=== PATIENT | male | born 1975 | race Caucasian/White ===

== ENCOUNTER 2017-06-05 18:21 | Inpatient (IN) ==
[2017-06-05] MEDS ORDERED: 0.9 % Sodium Chloride 1,000 ML IVC ONE (19:22)
[2017-06-05] MEDS ORDERED: cloNIDine HCl 0.1 MG TABLET PO ONE (19:25)
[2017-06-05] MEDS ORDERED: *HR* Promethazine 25 MG/ML VIAL IVP ONE (19:26)
--- NOTE | 2017-06-05 19:26 | Emergency Department Note ---
Disposition Clinical Impression: Dizziness Abdominal pain Qualifiers: Abdominal location: unspecified location Qualified Code(s): R10.9 - Unspecified abdominal pain Constipation Qualifiers: Constipation type: unspecified constipation type Qualified Code(s): K59.00 - Constipation, unspecified Hypertension Qualifiers: Hypertension type: unspecified Qualified Code(s): I10 - Essential (primary) hypertension Disposition: Admitted As Inpatient Condition: Fair Forms: ED Satisfaction Letter, Work/School Release Time of Disposition: 20:34 Abdominal Pain HPI - General Chief Complaint: ED Abdominal Pain Stated Complaint: "dizziness,constipation,abd pain" Time Seen by Provider: 06/05/17 19:08 Source: patient Mode of arrival: ambulatory Limitations: no limitations Nursing Notes Reviewed: Yes Vital Signs Reviewed: Yes - History of Present Illness HPI Narrative: 41-year-old male with a history of hypertension presents for evaluation of abdominal pain, dizziness, constipation. Patient states he has had abdominal pain over the past 3 days. Patient states he has not had a normal bowel movement over that time. Patient still passing gas. Patient denies any history of abdominal surgeries. No colonoscopies. Patient's been taking Colace [id number]. Patient also states he has been having dizziness for the past month. Patient states that the dizziness is worse with head movement and positioning. Patient denies any history of room spinning. Patient had one episode of emesis. Patient denies any chest penetrance of breath. Patient denies any focal neurologic deficits. States that his dizziness appears to resolve after he passes gas. Pain Scale: 5 - Related Data Allergies Allergy/AdvReac Type Severity Reaction Status Date / Time No Known Allergies Allergy Verified 06/05/17 19:49 All systems ED: reviewed and negative except as stated. Constitutional: Denies: fever Cardiovascular: Denies: chest pain Respiratory: Denies: cough Gastrointestinal: Reports: abdominal pain, vomiting, constipation. Denies: nausea Abdominal Pain PMH - Past Medical History Medical history: Reports: hypertension Male Surgical History: Reports: no surgical history Psychiatric history: Reports: no psych history - Social History Smoking status: Current every day smoker Alcohol use: Reports: none Drug use: Reports: none Physical Exam - General Limitations: no limitations General appearance: alert, in no apparent distress - Eye Eye exam: Present: normal appearance - ENT ENT exam: normal exam - Neck Neck exam: Present: normal inspection - Chest Chest inspection: Present: normal inspection - Respiratory Respiratory exam: Present: normal lung sounds bilaterally. Absent: respiratory distress - Cardiovascular Cardiovascular exam: Present: regular rate, normal rhythm. Absent: systolic murmur - Abdominal Exam Abdominal exam: Present: soft, Non-Tender, hyperactive bowel sounds. Absent: guarding, rebound - Extremities Exam Extremities exam: Present: normal inspection. Absent: pedal edema - Expanded Lower Extremity Exam Neurovascular/Tendon exam: Present: normal capillary refill - Neurological Exam Neurological exam: Present: alert, oriented X3, CN II-XII intact - Skin Skin exam: Present: warm, dry, intact, normal color Course Course Narrative: Patient in no acute distress. Patient will get CT scan the abdomen pelvis. Patient will get the screening cardiac evaluation given the history of hypertension. Disposition pending. - Reevaluation(s) Reevaluation #1: Patient is up-to-date on plan of care. Patient states that he feels sleepy. Patient still feels an element of dizziness. Plan for admission. Time: 20:40 Reevaluation #2: Spoke with bed management and made them aware that the patient will require nicardipine. Patient will require a step down. Time: 20:44 Vital Signs Temperature 98.5 F 06/05/17 18:32 Pulse Rate 71 06/05/17 18:32 Respiratory Rate 18 06/05/17 18:32 Blood Pressure 209/132 06/05/17 18:32 O2 Sat by Pulse Oximetry 98 06/05/17 18:32 Temperature 98.5 F 06/05/17 18:32 Pulse Rate 70 06/05/17 20:10 Respiratory Rate 16 06/05/17 20:10 Blood Pressure 232/126 06/05/17 20:10 O2 Sat by Pulse Oximetry 98 06/05/17 18:32 Oxygen Delivery Oxygen Delivery Room Air Abdominal Pain - MDM Narrative Medical decision making narrative: 41-year-old male presents for evaluation of dizziness, hypertension, as well as constipation. Patient abdominal exam is unremarkable. Patient has active bowel sounds. Patient had a CT scan abdomen pelvis. Patient also had a CT scan of the head. Patient was noted be hypertensive throughout his ED course. Patient was given clonidine. Concerns of possible hypertensive emergency with the patient's dizziness as a complaint. Not able to rule out central cause of the patient's dizziness. Patient has had dizziness intermittent over several weeks. Patient had a head CT obtained. Patient does not have close follow-up with his primary care doctor. Given the patient's abnormal vitals with hypertension the patient will be admitted to the hospital service for continued hemodynamic monitoring. Patient also likely benefit from further evaluation of his dizziness. Patient was updated on plan of care. - Lab Data Lab results reviewed: Yes I reviewed the patient's lab results. Result diagrams: 06/05/17 19:30 06/05/17 19:30 Lab Results 06/05/17 06/05/17 06/05/17 Range/Units 19:30 19:30 19:30 WBC 9.1 (4.3-11.1) K/mcL RBC 5.09 (4.19-5.50) M/mcL Hgb 15.6 (12.9-16.9) g/dL Hct 43.8 (37.5-50.1) % MCV 86.1 (83.0-100.0) fL MCH 30.6 (28.0-33.3) pg MCHC 35.6 H (31.6-35.5) g/dL RDW 12.0 (11.5-14.5) % Plt Count 199 (140-400) K/mcL MPV 10.5 (9.4-12.4) fL Immature Gran % 0.4 (0-4) % Seg Neutrophils % 66.8 % Lymphocytes % 22.1 % Monocytes % 6.5 % Eosinophils % 3.3 % Basophils % 0.9 % Neutrophils # 6.1 (1.6-8.9) K/mcL Lymphocytes # 2.0 (0.6-4.6) K/mcL Monocytes # 0.6 (0.0-1.3) K/mcL Eosinophils # 0.3 (0.0-0.6) K/mcL Basophils # 0.1 (0.0-0.2) K/mcL Sodium 138 (136-145) mEq/L Potassium 3.7 (3.5-5.1) mEq/L Chloride 103 (98-107) mEq/L Carbon Dioxide 29 (23-29) mEq/L BUN 9 (6-20) mg/dL Creatinine 0.67 L (0.70-1.30) mg/dL Est GFR ( Amer) > 60 (> 60) Est GFR (Non-Af Amer) > 60 (> 60) BUN/Creatinine Ratio 13 (6-26) Glucose 128 H (70-105) mg/dL Calculated Osmolality 286 (280-300) Lactic Acid (0.5-2.2) mmol/L Calcium 9.9 (8.6-10.3) mg/dL Total Bilirubin 0.7 (0.3-1.0) mg/dL AST 16 (13-39) Units/L ALT 31 (7-52) Units/L Alkaline Phosphatase 61 (34-104) Units/L Troponin I < 0.03 (< 0.04) ng/mL B-Natriuretic Peptide 27 (Less than 100) pg/mL Serum Total Protein 6.9 (6.4-8.9) g/dL Albumin 4.8 (3.5-5.7) g/dL Globulin 2.1 L (2.4-3.5) g/dL Albumin/Globulin Ratio 2.3 H (1.1-2.2) 06/05/17 Range/Units 19:30 WBC (4.3-11.1) K/mcL RBC (4.19-5.50) M/mcL Hgb (12.9-16.9) g/dL Hct (37.5-50.1) % MCV (83.0-100.0) fL MCH (28.0-33.3) pg MCHC (31.6-35.5) g/dL RDW (11.5-14.5) % Plt Count (140-400) K/mcL MPV (9.4-12.4) fL Immature Gran % (0-4) % Seg Neutrophils % % Lymphocytes % % Monocytes % % Eosinophils % % Basophils % % Neutrophils # (1.6-8.9) K/mcL Lymphocytes # (0.6-4.6) K/mcL Monocytes # (0.0-1.3) K/mcL Eosinophils # (0.0-0.6) K/mcL Basophils # (0.0-0.2) K/mcL Sodium (136-145) mEq/L Potassium (3.5-5.1) mEq/L Chloride (98-107) mEq/L Carbon Dioxide (23-29) mEq/L BUN (6-20) mg/dL Creatinine (0.70-1.30) mg/dL Est GFR ( Amer) (> 60) Est GFR (Non-Af Amer) (> 60) BUN/Creatinine Ratio (6-26) Glucose (70-105) mg/dL Calculated Osmolality (280-300) Lactic Acid 1.3 (0.5-2.2) mmol/L Calcium (8.6-10.3) mg/dL Total Bilirubin (0.3-1.0) mg/dL AST (13-39) Units/L ALT (7-52) Units/L Alkaline Phosphatase (34-104) Units/L Troponin I (< 0.04) ng/mL B-Natriuretic Peptide (Less than 100) pg/mL Serum Total Protein (6.4-8.9) g/dL Albumin (3.5-5.7) g/dL Globulin (2.4-3.5) g/dL Albumin/Globulin Ratio (1.1-2.2) - Radiology Data Radiology results reviewed: Yes I reviewed the patient's radiology results. Abdomen/Pelvis CT 06/05/17 19:20 IMPRESSION: Questionable narrowing of the colon at both the splenic and hepatic flexures, without significant wall thickening. There is a small- moderate colonic stool burden. Diffuse hepatic steatosis. Hyperdense material within the appendix suspicious for appendicoliths. There are no findings of acute appendicitis. Nonobstructing right renal calculus. D/ / Toribio Mclean MD / Toribio Mclean MD Interpreting Provider: Toribio Mclean MD Chest X-Ray 06/05/17 19:21 IMPRESSION: No significant findings in the chest. D/ / Tyrone Decker MD / Tyrone Decker MD Interpreting Provider: Tyrone Decker MD Head CT 06/05/17 20:17 IMPRESSION: No acute intracranial abnormality. D/ / Cole Santiago MD / Cole Santiago MD Interpreting Provider: Cole Santiago MD - EKG Data EKG attestation: Yes I reviewed and interpreted this EKG. EKG shows normal: sinus rhythm Rate: normal Rhythm: NSR [place]/QRS: normal Voltage: c/w LVH Heart block present: 1st Degree Interpretation: no acute changes, nonspecific ST-T wave changes S.B.ALilliRLilli - S.BreonnaAOtoniel Situation: Demographics Background: Presenting Complaint Assessment: Vital Signs, Patient/Family Expectation Recommendation: Barrier(s) to disposition, Recommendation based on pending studies, treatments, or consults S.B.A.Dnia Report Given to: Dr. Delgado Luna Repor Time: 20:36
[2017-06-05 19:43] LABS: Basophils # 0.1 K/mcL (0.0-0.2); Basophils % 0.9 %; Eosinophils # 0.3 K/mcL (0.0-0.6); Eosinophils % 3.3 %; Hematocrit 43.8 % (37.5-50.1); Hemoglobin 15.6 g/dL (12.9-16.9); Immature Granulocytes % 0.4 % (0-4); Lymphocytes % 22.1 %; Mean Corpuscular HGB Conc 35.6 g/dL (31.6-35.5); Mean Corpuscular Hemoglobin 30.6 pg (28.0-33.3); Mean Corpuscular Volume 86.1 fL (83.0-100.0); Mean Platelet Volume 10.5 fL (9.4-12.4); Monocytes # 0.6 K/mcL (0.0-1.3); Monocytes % 6.5 %; Neutrophils # 6.1 K/mcL (1.6-8.9); Platelet Count 199 K/mcL (140-400); Red Blood Count 5.09 M/mcL (4.19-5.50); Segmented Neutrophils % 66.8 %
--- NOTE | 2017-06-05 19:58 | Emergency Department Note ---
Disposition Clinical Impression: Abdominal pain Qualifiers: Abdominal location: unspecified location Qualified Code(s): R10.9 - Unspecified abdominal pain Disposition: Still a Patient Referrals: NONE,PCP [Primary Care Provider] - Yoselyn Lambert [Family Provider] - Forms: ED Satisfaction Letter, Work/School Release General Adult HPI - General Chief complaint: ED Abdominal Pain Stated complaint: "dizziness,constipation,abd pain" Time Seen by Provider: 06/05/17 19:08 Source: patient Mode of arrival: ambulatory Limitations: no limitations - History of Present Illness Pain Scale: 5 - Related Data Allergies Allergy/AdvReac Type Severity Reaction Status Date / Time No Known Allergies Allergy Verified 06/05/17 19:49 Constitutional: Denies: fever Cardiovascular: Denies: chest pain Respiratory: Denies: cough Gastrointestinal: Reports: abdominal pain, vomiting, constipation. Denies: nausea Past Medical History - Past Medical History Medical history: Reports: hypertension Psychiatric history: Reports: no psych history - Social History Smoking Status: Current every day smoker Smokeless Tobacco Status: Yes Alcohol use: Reports: none Drug use: Reports: none Physical Exam - General Limitations: no limitations General appearance: alert, in no apparent distress Course Vital Signs Temperature 98.5 F 06/05/17 18:32 Pulse Rate 71 06/05/17 18:32 Respiratory Rate 18 06/05/17 18:32 Blood Pressure 209/132 06/05/17 18:32 O2 Sat by Pulse Oximetry 98 06/05/17 18:32 Temperature 98.5 F 06/05/17 18:32 Pulse Rate 71 06/05/17 18:32 Respiratory Rate 18 06/05/17 18:32 Blood Pressure 209/132 06/05/17 18:32 O2 Sat by Pulse Oximetry 98 06/05/17 18:32 Oxygen Delivery Oxygen Delivery Room Air Medical Decision Making - Lab Data Result diagrams: 06/05/17 19:30 Lab Results 06/05/17 06/05/17 Range/Units 19:30 19:30 WBC 9.1 (4.3-11.1) K/mcL RBC 5.09 (4.19-5.50) M/mcL Hgb 15.6 (12.9-16.9) g/dL Hct 43.8 (37.5-50.1) % MCV 86.1 (83.0-100.0) fL MCH 30.6 (28.0-33.3) pg MCHC 35.6 H (31.6-35.5) g/dL RDW 12.0 (11.5-14.5) % Plt Count 199 (140-400) K/mcL MPV 10.5 (9.4-12.4) fL Immature Gran % 0.4 (0-4) % Seg Neutrophils % 66.8 % Lymphocytes % 22.1 % Monocytes % 6.5 % Eosinophils % 3.3 % Basophils % 0.9 % Neutrophils # 6.1 (1.6-8.9) K/mcL Lymphocytes # 2.0 (0.6-4.6) K/mcL Monocytes # 0.6 (0.0-1.3) K/mcL Eosinophils # 0.3 (0.0-0.6) K/mcL Basophils # 0.1 (0.0-0.2) K/mcL Lactic Acid 1.3 (0.5-2.2) mmol/L Attestation Statement - Attestation Attestation: I examined this patient and my medical decision-making was reviewed with the Resident Physician. I agree with the documented findings, disposition and treatment plan as described except to the extent set forth below. 41 year old male prsentse to the ED with complaints of abdomnial pain and constipation adn every time he tries to go to pass stool he strains so hard that he has had a syncopal episode due to it and sometimes gets near syncopal with it. NO history of colon cancer or fmaily history of colon cancer and no history of colonoscopy or abdominal surgeires. He is hypertensive but is chornically hypertensie and is not complaning of chest pain or headache at this time. We will do ABCT and abdominal labs to rule out abdominal pathology
[2017-06-05 20:03] LABS: Troponin I < 0.03 ng/mL (< 0.04)
[2017-06-05 20:04] LABS: Alanine Aminotransferase 31 Units/L (7-52); Albumin 4.8 g/dL (3.5-5.7); Albumin/Globulin Ratio 2.3 (1.1-2.2); Alkaline Phosphatase 61 Units/L (34-104); Aspartate Amino Transferase 16 Units/L (13-39); BUN/Creatinine Ratio 13 (6-26); Bilirubin,Total 0.7 mg/dL (0.3-1.0); Blood Urea Nitrogen 9 mg/dL (6-20); Calcium 9.9 mg/dL (8.6-10.3); Carbon Dioxide 29 mEq/L (23-29); Chloride 103 mEq/L (98-107); Globulin 2.1 g/dL (2.4-3.5); Glucose 128 mg/dL (70-105); Osmolality,Calculated 286 (280-300); Potassium 3.7 mEq/L (3.5-5.1); Sodium 138 mEq/L (136-145); Total Protein 6.9 g/dL (6.4-8.9); eGFR For African Americans > 60 (> 60); eGFR For Non-African Americans > 60 (> 60)
[2017-06-05] MEDS ORDERED: Nitroglycerin 0.4 MG TAB.SUBL SL PRN (20:19)
[2017-06-05] MEDS ORDERED: niCARdipine 40 MG/200 ML MLS IVC SCH (20:45)
[2017-06-05] MEDS ORDERED: Naloxone 0.4 MG/ML INJ IVP PRN (21:06)
--- NOTE | 2017-06-05 21:19 | Internal Med History&Physical ---
Date of Encounter: 06/05/17 Time of Encounter: 21:15 Internal Medicine - H&P: HPI Admitted From: Home Plans for Post Hospital Care: Home History of present illness: Mr. Redding is a 41-year-old male with a history of hypertension presents for evaluation of abdominal pain, dizziness, constipation. Patient states he has had abdominal pain over the past 3 days. Patient states he has not had a normal bowel movement over that time. Patient still passing gas. Patient denies any history of abdominal surgeries. No colonoscopies. Patient's been taking Colace [id number]. Patient also states he has been having dizziness for the past month. Patient states that the dizziness is worse with head movement and positioning. Patient denies any history of room spinning. Patient denies any chest penetrance of breath. Patient denies any focal neurological deficits. States that his dizziness appears to resolve after he passes gas. At the ED, her blood pressure was significantly elevated with systolic BP more than 220. Labs were unremarkable. EKG normal SR without ST-T changes. CT chest without acute abnormalities. CT head without acute changes. Abdominal CT revealed liver steatosis, non-obstructive right renal calculus, appendicoliths without acute appendicitis, moderate amount of stool, mild narrowing of hepatic and splenic flexure of colon without obstruction. Due to his high blood pressure, he will be admitted as inpatient for further management. Past Med Surg Social Fam HX - Past Medical History Medical history: hypertension Psychiatric history: no psych history - Social History Smoking Status: Current every day smoker Smokeless Tobacco Status: Yes Alcohol use: none Drug use: none Internal Medicine - H&P: Meds Buprenorphine HCl [Subutex] 8 mg SL BID 06/05/17 [History] 3 Allergy/AdvReac Type Severity Reaction Status Date / Time No Known Allergies Allergy Verified 06/05/17 19:49 All Systems PM: A 10-system review of systems was performed and is negative for pertinent findings except as documented above in the HPI. Review of systems: REVIEW OF SYSTEMS: CONSTITUTIONAL: No weight loss, fever, chills, weakness or fatigue. HEENT: Eyes: No visual loss, blurred vision, double vision or yellow sclerae. Ears, Nose, Throat: No hearing loss, sneezing, congestion, runny nose or sore throat. SKIN: No rash or itching. CARDIOVASCULAR: No chest pain, chest pressure or chest discomfort. No palpitations or edema. RESPIRATORY: No shortness of breath, cough or sputum. GASTROINTESTINAL: No anorexia, nausea, vomiting or diarrhea. No abdominal pain or blood. GENITOURINARY: No dysuria, urgency, or frequency. NEUROLOGICAL: No headache, dizziness, syncope, paralysis, ataxia, numbness or tingling in the extremities. No change in bowel or bladder control. MUSCULOSKELETAL: No muscle, back pain, joint pain or stiffness. HEMATOLOGIC: No anemia, bleeding or bruising. LYMPHATICS: No enlarged nodes. No history of splenectomy. PSYCHIATRIC: No history of depression or anxiety. ENDOCRINOLOGIC: No reports of sweating, cold or heat intolerance. No polyuria or polydipsia. - Constitutional Vitals: Temp Pulse Resp BP Pulse Ox 98.5 F 66 16 214/109 98 06/05/17 18:32 06/05/17 20:57 06/05/17 20:57 06/05/17 20:57 06/05/17 20:57 Exam: PHYSICAL EXAMINATION: GENERAL APPEARANCE: The patient is alert, oriented and in no acute distress. HEENT: Head is normocephalic. The sinuses are nontender. Pupils are equal and reactive. The nares are patent. Oropharynx clear without lesions. NECK: Supple without lymphadenopathy. HEART: Regular rate and rhythm. LUNGS: No crackles or wheezes are heard. ABDOMEN: Soft, nontender, nondistended with good bowel sounds heard. Inguinal area is normal. EXTREMITIES: Without cyanosis, clubbing or edema. NEUROLOGICAL: Gross nonfocal. SKIN: Warm and dry without any rash. Internal Med - H&P Results - Labs CBC & Chem 7: 06/05/17 19:30 06/05/17 19:30 - Assessment and plan (1) Hypertensive emergency Current Visit: Yes Status: Acute Assessment and plan: - Hx of HTN but has not been taking any meds for months. - started on Cardene gtt. Maintain SBP 170-180 but not less than 160 overnight. - will start po BP meds and titrate off cardene gtt in the morning. (2) Abdominal pain Current Visit: Yes Status: Acute Assessment and plan: - No acute abnormalities on CT scan. - pending UA. - Miralex for constipation. Qualifiers: Abdominal location: unspecified location Qualified Code(s): R10.9 - Unspecified abdominal pain (3) Dizziness Current Visit: Yes Status: Acute Assessment and plan: - Likely part of the clinical manifestation of hypertensive emergency. - monitor. - Time Spent With Patient Total time spent is greater than 50% in coordination of care (as documented) at patient's floor/unit and/or counseling patient: Greater than 35 minutes
[2017-06-05] MEDS: niCARdipine 40 MG/200 ML MLS IVC SCH (22:06)
[2017-06-06] MEDS: *HR* Heparin 5,000 UNIT/ML VIAL SQ SCH ×2 (04:24→18:03)
[2017-06-06 04:27] LABS: Hematocrit 42.3 % (37.5-50.1); Hemoglobin 14.7 g/dL (12.9-16.9); Mean Corpuscular HGB Conc 34.8 g/dL (31.6-35.5); Mean Corpuscular Hemoglobin 30.1 pg (28.0-33.3); Mean Corpuscular Volume 86.7 fL (83.0-100.0); Mean Platelet Volume 10.4 fL (9.4-12.4); Platelet Count 185 K/mcL (140-400); Red Blood Count 4.88 M/mcL (4.19-5.50); Red Cell Distribution Width 12.4 % (11.5-14.5)
[2017-06-06 04:41] LABS: Alanine Aminotransferase 28 Units/L (7-52); Albumin 4.3 g/dL (3.5-5.7); Alkaline Phosphatase 55 Units/L (34-104); Aspartate Amino Transferase 16 Units/L (13-39); BUN/Creatinine Ratio 12 (6-26); Bilirubin,Total 1.1 mg/dL (0.3-1.0); Blood Urea Nitrogen 8 mg/dL (6-20); Calcium 9.2 mg/dL (8.6-10.3); Carbon Dioxide 26 mEq/L (23-29); Chloride 109 mEq/L (98-107); Globulin 2.2 g/dL (2.4-3.5); Glucose 112 mg/dL (70-105); Osmolality,Calculated 293 (280-300); Potassium 3.3 mEq/L (3.5-5.1); Sodium 142 mEq/L (136-145); Total Protein 6.5 g/dL (6.4-8.9); eGFR For African Americans > 60 (> 60); eGFR For Non-African Americans > 60 (> 60)
[2017-06-06] MEDS: niCARdipine 40 MG/200 ML MLS IVC SCH ×2 (05:22→14:06)
[2017-06-06] MEDS: *HR* Buprenorphine HCl 8 MG TAB.SUBL SL SCH ×2 (08:53→20:03)
--- NOTE | 2017-06-06 09:47 | Internal Med Progress Note ---
<Toribio Bajwa - Last Filed: 06/06/17 11:26> Date of Encounter: 06/06/17 Time of Encounter: 08:30 - Assessment and plan (1) Hypertensive emergency Current Visit: Yes Status: Acute Assessment and plan: Patient on admission was 230/120 with dizziness, abdominal pain, and constipation. BP was lowered with hydralazine, clonidine, and nicardipine drip. Current BP is 154/106, which is within 24 hours of initial presentation. Will restart home BP at this time. - Goal for the first 24 hours is ~160/110 - titrate nicardipine drip, restarted lisinopril 10, HCTZ 12.5 mg. - obtaining old medical records for Rx adjustment - salt restriction (2) Palpitations Current Visit: Yes Status: Acute Assessment and plan: Patient reports a hx of intermittent palpitations. Patient was D/C'ed from a previous hospital stay with Metoprolol XL, concerned for tachy arrhythmias. - capture EKG if HR is over 100 or patient develops palpitations - obtaining medical records from other facility prior to restarting Metoprolol XL (3) Abdominal pain Current Visit: Yes Status: Acute Assessment and plan: Abdominal pain is subsiding, and relieved with passing gas. Patient is able to eat. Patient reports that he is constipated and about to have a bowel movement. CT abdomen showed no acute processes, possibly narrowing of splenic and hepatic flextures, hepatic steatosis, and no acute appendicitis. - document bowel movement - Continue miralax, will continue to monitor patient, if he remains constipated will consider other modalities - serial abdominal exams Qualifiers: Abdominal location: unspecified location Qualified Code(s): R10.9 - Unspecified abdominal pain (4) Constipation Current Visit: Yes Status: Acute Assessment and plan: see above Qualifiers: Constipation type: unspecified constipation type Qualified Code(s): K59.00 - Constipation, unspecified (5) Dizziness Current Visit: Yes Status: Acute Assessment and plan: patient is currently asymptomatic - continue Meclizine as needed (6) Hypokalemia Current Visit: Yes Status: Acute Assessment and plan: K+ this AM was 3.3. Will replace with oral K+ and recheck in the AM. (7) DVT prophylaxis Current Visit: Yes Status: Acute Assessment and plan: ct SQ heparin (8) Obesity (BMI 30-39.9) Current Visit: Yes Status: Acute Assessment and plan: recommended weight loss to patient. chronic, recommended follow up outpatient (9) Tobacco abuse Current Visit: Yes Status: Acute Assessment and plan: patient is a pack a day smoker. recommended cessation. he currently is attempting using vape to quit. counseled patient on options of patch and chantix. recommended to follow up with PCP (10) Opioid abuse Current Visit: Yes Status: Acute Assessment and plan: quit 3 years ago, currently on subutex. continue bupernorphine - Time Spent With Patient Total time spent is greater than 50% in coordination of care (as documented) at patient's floor/unit and/or counseling patient: - Subjective Interval history: Mr Redding is a 41 yo M w/ pmh of 1 pack a day of tobacco use, HTN, and opiod abuse on suboxone. Patient presented with 3 day hx of abdominal pain, dizziness , and constipation. This has previously happened a few years ago and he was hospitalized at a different facility which is when he was started on BP medications. He states that he was started on lisinopril, HCTZ, and metoprolol XL. Patient was found to have a BP of 230/120 in the ED and started on hydralazine, nicardipine drip, and clonidine. According to nurse, BP this AM has been at goal of 160/110. Patient still has complaints of abdominal pain which has lessened, and still has not had a bowel movement but believes it's coming soon. He states he has passed a lot of gas. Patient states he has a mild headache. Patient declines SOB, CP, swelliing, orthopnea, PND. Patient also previously was addicted to Opioid medications but denies IVDU or other drug use. Patient has been on suboxone for the last 3 years. He states he was unable to afford both his BP medications and his suboxone. He ultimately decided to stop his BP medications, and only continue on Suboxone. - Constitutional Vitals: Temp Pulse Resp BP Pulse Ox 97.9 F 92 20 167/110 96 06/06/17 08:00 06/06/17 08:11 06/06/17 08:00 06/06/17 08:00 06/06/17 08:00 General appearance: Present: cooperative, mild distress, A&O X 3, morbidly obese , answers questions appropriately - Head Head exam: Present: normal inspection - Neck Neck exam general surgery: Present: supple - Respiratory Respiratory exam: Present: CTAB. Absent: accessory muscle use, rales, rhonchi, wheezes - Cardiovascular Cardiovascular exam: Present: RRR, +S1, +S2. Absent: diastolic murmur, gallop, rubs, systolic murmur - GI/Abdominal GI/Abdominal exam: Present: distended, normal bowel sounds, tenderness (LUQ). Absent: rebound - Extremities Exam Extremities exam: Present: warm, radial pulses palpable and symmetrical. Absent : calf tenderness, cyanotic, pedal edema Internal Medicine: Result - Labs CBC & Chem 7: 06/06/17 04:11 06/06/17 04:11 Labs: Short CBC 06/06/17 Range/Units 04:11 WBC 9.4 (4.3-11.1) K/mcL Hgb 14.7 (12.9-16.9) g/dL Hct 42.3 (37.5-50.1) % Plt Count 185 (140-400) K/mcL BMP 06/06/17 04:11 Sodium 142 Potassium 3.3 L Chloride 109 H Carbon Dioxide 26 BUN 8 Creatinine 0.65 L Glucose 112 H Calcium 9.2 Liver Function 06/06/17 Range/Units 04:11 Total Bilirubin 1.1 H (0.3-1.0) mg/dL AST 16 (13-39) Units/L ALT 28 (7-52) Units/L Alkaline Phosphatase 55 (34-104) Units/L Albumin 4.3 (3.5-5.7) g/dL Consult Discharge Plan - Plan Referrals: NONE,PCP [Primary Care Provider] - Yoselyn Lambert [Family Provider] - <Wilber Hansen - Last Filed: 06/06/17 19:23> Date of Encounter: 06/06/17 - Assessment and plan (1) Hypertensive emergency Current Visit: Yes Status: Acute (2) Atrial fibrillation Current Visit: Yes Status: Acute Qualifiers: Atrial fibrillation type: paroxysmal Qualified Code(s): I48.0 - Paroxysmal atrial fibrillation (3) Constipation Current Visit: Yes Status: Acute Qualifiers: Constipation type: drug induced constipation Qualified Code(s): K59.03 - Drug induced constipation (4) Abdominal pain Current Visit: Yes Status: Acute Qualifiers: Abdominal location: left lower quadrant Qualified Code(s): R10.32 - Left lower quadrant pain (5) Dizziness Current Visit: Yes Status: Acute (6) Hypokalemia Current Visit: Yes Status: Acute (7) Tobacco abuse Current Visit: Yes Status: Acute (8) Opioid abuse Current Visit: Yes Status: Acute - Time Spent With Patient Total time spent is greater than 50% in coordination of care (as documented) at patient's floor/unit and/or counseling patient: - Constitutional Vitals: Temp Pulse Resp BP Pulse Ox 97.9 F 89 20 150/103 96 06/06/17 15:00 06/06/17 18:00 06/06/17 18:00 06/06/17 18:00 06/06/17 18:00 Internal Medicine: Result - Labs CBC & Chem 7: 06/06/17 04:11 06/06/17 04:11 Labs: Short CBC 06/06/17 Range/Units 04:11 WBC 9.4 (4.3-11.1) K/mcL Hgb 14.7 (12.9-16.9) g/dL Hct 42.3 (37.5-50.1) % Plt Count 185 (140-400) K/mcL BMP 06/06/17 04:11 Sodium 142 Potassium 3.3 L Chloride 109 H Carbon Dioxide 26 BUN 8 Creatinine 0.65 L Glucose 112 H Calcium 9.2 Liver Function 06/06/17 Range/Units 04:11 Total Bilirubin 1.1 H (0.3-1.0) mg/dL AST 16 (13-39) Units/L ALT 28 (7-52) Units/L Alkaline Phosphatase 55 (34-104) Units/L Albumin 4.3 (3.5-5.7) g/dL - Attending Attestation I examined this patient and my medical decision-making was reviewed with the Resident Physician on 06/06/17. I agree with the documented findings, disposition and treatment plan as described except to the extent set forth below. Mr Redding is currently admitted for acute hypertensive emergency. He is having some PAF when on toilet. He remains high risk due to potential for worsening clinical status. Mr Redding is having PAF when trying to have BM. He gets very diaphoretic. No CP. Has some abd pain. Happens at home. BP still elevated. Exam alert Moderate distress Mucus membranes dry Heart tachy in a fib then down to NSR Lungs clear Abd soft I/P 1. Hypertensive emergency 2. PAF 3. Constipation Further diagnoses and plan as above.
[2017-06-06] MEDS: hydroCHLOROthiazide 25 MG TABLET PO SCH (10:42)
[2017-06-06] MEDS: Acetaminophen 325 MG TABLET PO PRN (11:37)
[2017-06-06] MEDS ORDERED: Milk and Molasses Enema 200 ML RC ONE (17:26)
[2017-06-06] MEDS ORDERED: Methylnaltrexone 12 MG/0.6 ML SYRINGE SQ ONE (18:48)
--- NOTE | 2017-06-06 23:45 | Electrocardiograph Report ---
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
[2017-06-07 03:44] LABS: BUN/Creatinine Ratio 15 (6-26); Blood Urea Nitrogen 10 mg/dL (6-20); Carbon Dioxide 23 mEq/L (23-29); Chloride 101 mEq/L (98-107); Glucose 143 mg/dL (70-105); Osmolality,Calculated 282 (280-300); Potassium 3.1 mEq/L (3.5-5.1); Sodium 135 mEq/L (136-145); eGFR For African Americans > 60 (> 60); eGFR For Non-African Americans > 60 (> 60)
[2017-06-07] MEDS: *HR* Heparin 5,000 UNIT/ML VIAL SQ SCH ×2 (05:31→17:41)
[2017-06-07] MEDS: niCARdipine 40 MG/200 ML MLS IVC SCH (05:31)
[2017-06-07] MEDS: *HR* Buprenorphine HCl 8 MG TAB.SUBL SL SCH ×2 (08:32→21:51)
[2017-06-07] MEDS: hydroCHLOROthiazide 25 MG TABLET PO SCH (08:32)
[2017-06-07] MEDS ORDERED: Perflutren Lipid Microsphere 1.3 ML in 0.9 % Sodium Chloride 8.7 ML IVP ONE (10:13)
--- NOTE | 2017-06-07 10:20 | Internal Med Progress Note ---
<Toribio Bajwa - Last Filed: 06/07/17 13:46> Date of Encounter: 06/07/17 Time of Encounter: 10:18 - Assessment and plan (1) Hypertensive emergency Current Visit: Yes Status: Acute Assessment and plan: Continues to be mildly controlled. - titrating off nicardipine, and switching to oral lisinopril and HCTZ - old MR pending - restarting home Metoprolol XL (2) Abdominal pain Current Visit: Yes Status: Acute Assessment and plan: 3 BM since yesterday. Pain and distension is improving. Will continue to monitor. Tolerating PO. - ct miralax, milk mg for now - strict I/O Qualifiers: Abdominal location: left lower quadrant Qualified Code(s): R10.32 - Left lower quadrant pain (3) Constipation Current Visit: Yes Status: Acute Assessment and plan: now resolved. see above Qualifiers: Constipation type: drug induced constipation Qualified Code(s): K59.03 - Drug induced constipation (4) Dizziness Current Visit: Yes Status: Acute Assessment and plan: continue meclizine PRN (5) Hypokalemia Current Visit: Yes Status: Acute Assessment and plan: most likely due to bowel regimen that has been given to patient. Will replace with oral K+ and continue Mg with milk of mg and continue monitoring. (6) Tobacco abuse Current Visit: Yes Status: Acute Assessment and plan: patient is a pack a day smoker. recommended cessation. he currently is attempting using vape to quit. counseled patient on options of patch and chantix. recommended to follow up with PCP (7) Opioid abuse Current Visit: Yes Status: Acute Assessment and plan: quit 3 years ago, currently on subutex. continue bupernorphine (8) DVT prophylaxis Current Visit: Yes Status: Acute Assessment and plan: ct SQ heparin (9) Obesity (BMI 30-39.9) Current Visit: Yes Status: Acute Assessment and plan: recommended weight loss to patient. chronic, recommended follow up outpatient (10) Tachycardia Current Visit: Yes Status: Acute Assessment and plan: PAtient had unsustained Vtach while straining for bowel movement. Patient was previously prescribed metoprolol XL, concerned for tachy arrhythmia. - echo pending. - Time Spent With Patient Total time spent is greater than 50% in coordination of care (as documented) at patient's floor/unit and/or counseling patient: - Subjective Interval history: Mr Redding is seen and examined. Last night patient was having non-sustained Vtach when straining for a bowel movement. Due to concerns of cardio issues, echo was ordered. Overnight to this morning patient reports having 3 bowel movements which has decreased his abdominal pain, and distension. Patient denies any new complaints. Patient denies chest pain, SOB, nausea or vomiting. - Constitutional Vitals: Temp Pulse Resp BP Pulse Ox 97.8 F 100 16 159/115 97 06/07/17 08:17 06/07/17 08:14 06/07/17 08:00 06/07/17 08:00 06/07/17 08:00 General appearance: Present: cooperative, mild distress, A&O X 3, morbidly obese , answers questions appropriately - Head Head exam: Present: atraumatic, normocephalic - Respiratory Respiratory exam: Present: CTAB. Absent: accessory muscle use, rales, rhonchi, wheezes - Cardiovascular Cardiovascular exam: Present: RRR, +S1, +S2. Absent: diastolic murmur, gallop, rubs, systolic murmur - GI/Abdominal GI/Abdominal exam: Present: distended (down from yesterdary), normal bowel sounds. Absent: guarding, rebound, tenderness - Extremities Exam Extremities exam: Present: warm, radial pulses palpable and symmetrical. Absent : calf tenderness, cyanotic, pedal edema Internal Medicine: Result - Labs CBC & Chem 7: 06/06/17 04:11 06/07/17 02:59 Labs: BMP 06/07/17 02:59 Sodium 135 L Potassium 3.1 L Chloride 101 Carbon Dioxide 23 BUN 10 Creatinine 0.67 L Glucose 143 H Calcium 10.0 Consult Discharge Plan - Plan Referrals: NONE,PCP [Primary Care Provider] - Yoselyn Lambert [Family Provider] - <Wilber Hansen - Last Filed: 06/07/17 18:39> Date of Encounter: 06/07/17 - Assessment and plan (1) Constipation Current Visit: Yes Status: Acute Qualifiers: Constipation type: drug induced constipation Qualified Code(s): K59.03 - Drug induced constipation (2) Hypertensive emergency Current Visit: Yes Status: Acute (3) Abdominal pain Current Visit: Yes Status: Acute Qualifiers: Abdominal location: left lower quadrant Qualified Code(s): R10.32 - Left lower quadrant pain (4) Dizziness Current Visit: Yes Status: Acute (5) Hypokalemia Current Visit: Yes Status: Acute (6) DVT prophylaxis Current Visit: Yes Status: Acute (7) Obesity (BMI 30-39.9) Current Visit: Yes Status: Acute (8) Tobacco abuse Current Visit: Yes Status: Acute (9) Opioid abuse Current Visit: Yes Status: Acute (10) Tachycardia Current Visit: Yes Status: Acute - Time Spent With Patient Total time spent is greater than 50% in coordination of care (as documented) at patient's floor/unit and/or counseling patient: - Constitutional Vitals: Temp Pulse Resp BP Pulse Ox 98.3 F 71 20 174/118 96 06/07/17 15:00 06/07/17 17:00 06/07/17 17:00 06/07/17 17:00 06/07/17 17:00 Internal Medicine: Result - Labs CBC & Chem 7: 06/06/17 04:11 06/07/17 02:59 Labs: BMP 06/07/17 02:59 Sodium 135 L Potassium 3.1 L Chloride 101 Carbon Dioxide 23 BUN 10 Creatinine 0.67 L Glucose 143 H Calcium 10.0 - Impressions Impressions Echocardiogram 06/07/17 11:00 Impressions: LVEF 65-70%. Mild left ventricular diastolic dysfunction. Normal right ventricular structure and function. No significant valvular dysfunction. No pulmonary hypertension. Left Ventricular Wall Motion: Rest Echo Findings All wall segments showed normal motion. Findings: Study Quality * Technically adequate exam. ECG Findings * Normal sinus rhythm. Left Ventricle * LVEF 65-70%. * Mild left ventricular diastolic dysfunction. * Normal LV chamber size, wall thickness and function. * Definity echo contrast was used. Right Ventricle * Normal right ventricular structure and function. Left Atrium * Normal left atrial size. Right Atrium * Normal right atrial size. Aortic Valve * No aortic regurgitation. * Trileaflet aortic valve. * No aortic stenosis. Mitral Valve * Normal mitral valve structure in the PLAX view. Not optimally visualized in other views. * No mitral regurgitation. * No mitral stenosis. Tricuspid Valve * Tricuspid valve not well visualized. * No tricuspid regurgitation. Pulmonic Valve * Pulmonic valve is not well visualized. * No pulmonic stenosis. * No pulmonic regurgitation. Pulmonary Artery * Pulmonary artery not well visualized. Aorta * Normally sized aortic root. Pericardium * There is no pericardial effusion present. Interatrial Septum * Interatrial septum not well evaluated. IVC * The IVC is not well evaluated. - Attending Attestation I examined this patient and my medical decision-making was reviewed with the Resident Physician on 06/07/17. I agree with the documented findings, disposition and treatment plan as described except to the extent set forth below. Mr Redding is currently admitted for acute hypertensive emergency. He remains moderate to high risk due to potential for worsening clinical status. Mr Redding is feeling better. Had some bowel movements. No fever or chills. No CP or SOB. BP overall improving. Exam alert Comfortable Mucus membranes dry Heart reg No wheeze abd soft and nontender I/P 1. HTN emergency 2. Constipation Further diagnoses and plan as above.
[2017-06-07] MEDS: Acetaminophen 325 MG TABLET PO PRN (23:19)
[2017-06-08 04:06] LABS: BUN/Creatinine Ratio 20 (6-26); Blood Urea Nitrogen 16 mg/dL (6-20); Calcium 10.2 mg/dL (8.6-10.3); Carbon Dioxide 30 mEq/L (23-29); Chloride 99 mEq/L (98-107); Glucose 106 mg/dL (70-105); Osmolality,Calculated 284 (280-300); Potassium 3.3 mEq/L (3.5-5.1); Sodium 136 mEq/L (136-145); eGFR For African Americans > 60 (> 60); eGFR For Non-African Americans > 60 (> 60)
[2017-06-08] MEDS: Acetaminophen 325 MG TABLET PO PRN ×2 (05:20→20:28)
[2017-06-08] MEDS: *HR* Heparin 5,000 UNIT/ML VIAL SQ SCH ×2 (05:21→18:48)
[2017-06-08] MEDS: niCARdipine 40 MG/200 ML MLS IVC SCH ×5 (08:02→11:06)
[2017-06-08] MEDS: *HR* Buprenorphine HCl 8 MG TAB.SUBL SL SCH ×2 (08:12→20:25)
[2017-06-08] MEDS: hydroCHLOROthiazide 25 MG TABLET PO SCH (08:12)
[2017-06-08] MEDS: Metoprolol XL (24 HR) Succ 50 MG TAB.ER.24H PO SCH (08:13)
--- NOTE | 2017-06-08 14:22 | Internal Med Progress Note ---
<Toribio Bajwa - Last Filed: 06/08/17 14:20> Date of Encounter: 06/08/17 Time of Encounter: 08:30 - Assessment and plan (1) Abdominal pain Current Visit: Yes Status: Acute Assessment and plan: 3 BM yesterday. Will continue to monitor. Most likely resolved at this point. - ct miralax, milk mg for now - strict I/O Qualifiers: Abdominal location: left lower quadrant Qualified Code(s): R10.32 - Left lower quadrant pain (2) Constipation Current Visit: Yes Status: Acute Assessment and plan: resolved. see above Qualifiers: Constipation type: drug induced constipation Qualified Code(s): K59.03 - Drug induced constipation (3) Dizziness Current Visit: Yes Status: Acute Assessment and plan: continue meclizine PRN (4) Hypertensive emergency Current Visit: Yes Status: Acute Assessment and plan: Continues to be better improved - titrating off nicardipine, and switching to oral lisinopril and HCTZ - old MR pending - restarted home Metoprolol XL (5) Hypokalemia Current Visit: Yes Status: Acute Assessment and plan: stable at this point, currently stable. Will continue to replenish PO K+, remains mildly hypoK (6) DVT prophylaxis Current Visit: Yes Status: Acute Assessment and plan: ct SQ heparin (7) Obesity (BMI 30-39.9) Current Visit: Yes Status: Acute Assessment and plan: recommended weight loss to patient. chronic, recommended follow up outpatient (8) Tobacco abuse Current Visit: Yes Status: Acute Assessment and plan: Patient is in contemplative state of smoking cessation. Patient expressed interest in using chantix for continued smoking cessation. Will defer to PCP. (9) Opioid abuse Current Visit: Yes Status: Acute Assessment and plan: quit 3 years ago, currently on subutex. continue bupernorphine (10) Tachycardia Current Visit: Yes Status: Acute Assessment and plan: PAtient had unsustained Vtach while straining for bowel movement. Patient was previously prescribed metoprolol XL, concerned for tachy arrhythmia. - echo mild LV dysfunction - cardio consulted - restarted on toprolol XL (11) Uninsured Current Visit: Yes Status: Acute Assessment and plan: Patient expressed interested in getting insured and setting up PCP. - sill worker consulted for assistance. - Time Spent With Patient Total time spent is greater than 50% in coordination of care (as documented) at patient's floor/unit and/or counseling patient: - Subjective Interval history: Mr Redding is seen and examined. Patient reports feeling much better today. He denies having a bowel movement overnight, but had multiple the last few nights. His abdominal pain has now resolved. Patient denies any new complaints. Patient denies chest pain, SOB, nausea or vomiting. - Constitutional Vitals: Temp Pulse Resp BP Pulse Ox 97.9 F 65 18 174/106 98 06/08/17 11:44 06/08/17 11:44 06/08/17 11:44 06/08/17 11:44 06/08/17 11:44 General appearance: Present: cooperative, mild distress, A&O X 3, morbidly obese , answers questions appropriately - Head Head exam: Present: normal inspection - Respiratory Respiratory exam: Present: CTAB. Absent: accessory muscle use, rales, rhonchi, wheezes - Cardiovascular Cardiovascular exam: Present: RRR - GI/Abdominal GI/Abdominal exam: Present: distended (improved from yesterday), normal bowel sounds - Extremities Exam Extremities exam: Present: warm, radial pulses palpable and symmetrical. Absent : calf tenderness, cyanotic, pedal edema Internal Medicine: Result - Labs CBC & Chem 7: 06/06/17 04:11 06/08/17 03:19 Labs: BMP 06/08/17 03:19 Sodium 136 Potassium 3.3 L Chloride 99 Carbon Dioxide 30 H BUN 16 Creatinine 0.80 Glucose 106 H Calcium 10.2 - Impressions Impressions Echocardiogram 06/07/17 11:00 Impressions: LVEF 65-70%. Mild left ventricular diastolic dysfunction. Normal right ventricular structure and function. No significant valvular dysfunction. No pulmonary hypertension. Left Ventricular Wall Motion: Rest Echo Findings All wall segments showed normal motion. Findings: Study Quality * Technically adequate exam. ECG Findings * Normal sinus rhythm. Left Ventricle * LVEF 65-70%. * Mild left ventricular diastolic dysfunction. * Normal LV chamber size, wall thickness and function. * Definity echo contrast was used. Right Ventricle * Normal right ventricular structure and function. Left Atrium * Normal left atrial size. Right Atrium * Normal right atrial size. Aortic Valve * No aortic regurgitation. * Trileaflet aortic valve. * No aortic stenosis. Mitral Valve * Normal mitral valve structure in the PLAX view. Not optimally visualized in other views. * No mitral regurgitation. * No mitral stenosis. Tricuspid Valve * Tricuspid valve not well visualized. * No tricuspid regurgitation. Pulmonic Valve * Pulmonic valve is not well visualized. * No pulmonic stenosis. * No pulmonic regurgitation. Pulmonary Artery * Pulmonary artery not well visualized. Aorta * Normally sized aortic root. Pericardium * There is no pericardial effusion present. Interatrial Septum * Interatrial septum not well evaluated. IVC * The IVC is not well evaluated. Consult Discharge Plan - Plan Referrals: Gisele Bailey DO [Resident] - 06/15/17 3:00 pm (Located in the [facility] across from the [facility]. Be sure to bring Insurance card and ID to appointment) <Wilber Hansen - Last Filed: 06/08/17 18:20> Date of Encounter: 06/08/17 - Assessment and plan (1) Abdominal pain Current Visit: Yes Status: Acute Qualifiers: Abdominal location: left lower quadrant Qualified Code(s): R10.32 - Left lower quadrant pain (2) Constipation Current Visit: Yes Status: Acute Qualifiers: Constipation type: drug induced constipation Qualified Code(s): K59.03 - Drug induced constipation (3) Dizziness Current Visit: Yes Status: Resolved (4) Hypertensive emergency Current Visit: Yes Status: Acute (5) Hypokalemia Current Visit: Yes Status: Acute (6) Obesity (BMI 30-39.9) Current Visit: Yes Status: Acute (7) Tobacco abuse Current Visit: Yes Status: Acute (8) Opioid abuse Current Visit: Yes Status: Acute (9) Tachycardia Current Visit: Yes Status: Resolved (10) Uninsured Current Visit: Yes Status: Acute (11) DVT prophylaxis Current Visit: Yes Status: Acute - Time Spent With Patient Total time spent is greater than 50% in coordination of care (as documented) at patient's floor/unit and/or counseling patient: - Constitutional Vitals: Temp Pulse Resp BP Pulse Ox 98.4 F 66 18 157/101 98 06/08/17 16:22 06/08/17 16:22 06/08/17 16:22 06/08/17 16:22 06/08/17 16:22 Internal Medicine: Result - Labs CBC & Chem 7: 06/06/17 04:11 06/08/17 03:19 Labs: BMP 06/08/17 03:19 Sodium 136 Potassium 3.3 L Chloride 99 Carbon Dioxide 30 H BUN 16 Creatinine 0.80 Glucose 106 H Calcium 10.2 - Attending Attestation I examined this patient and my medical decision-making was reviewed with the Resident Physician on 06/08/17. I agree with the documented findings, disposition and treatment plan as described except to the extent set forth below. Mr Redding is currently admitted for hypertensive emergency. He remains moderate to high risk due to potential for worsening clinical status. Mr Redding is doing a little better. He is constipated again. Afraid to bear down due to heartrate. No fever. BP overall has slowly been improving. Exam alert Comfortable Mucus membranes dry Heart reg No wheeze abd soft I/P 1. HTN emergency 2. Constipation due to opiod Further diagnoses and plan as above. Will need outpatient GI follow up. Outpatient stress test.
--- NOTE | 2017-06-08 14:42 | Cardiology Consult Note ---
<Abdulkadir Mckee - Last Filed: 06/08/17 15:32> Date of Encounter: 06/08/17 Time of Encounter: 14:00 Assessment and Plan (1) Tachycardia Current Visit: Yes Status: Acute C/o palpitations associated with feeling gas and occasional presyncopal symptoms. Telemetry review shows runs of sinus tachycardia with HR up to 133 BPM. Avg Hr 74 bpm. No afib, no VT seen. TTE shows preserved EF. No significant valvular disease. Stress test two years ago at outside hospital was normal per patient. Denies GI eval in past. Agree with beta-maribel. Given this morning. No significant tachycardia this afternoon. Consider GI eval. Appears to occur with GI discomfort. Out-pt stress test if symptoms continue. Findings and plan of care reviewed with Dr. Bolanos. (2) Hypertensive emergency Current Visit: Yes Status: Acute Uncontrolled b/p. Agree with addition of bb in the setting of tachycardia. Increase lisinopril/HCTZ as needed. Low sodium diet. Compliance with medications discussed. Discussion w patient/family: The assessment and plan as outlined above was discussed with the patient and/or family members who expressed understanding and agreement. All questions were answered. Thank you for involving us in the care of your patient. Please call with any questions. History of Present Illness Consult date: 06/08/17 Requesting physician: Toribio Bajwa Consult reason: tachy-arrythmia Chief complaint: Abdominal discomfort, flatus, presyncopal symptoms with flatus and BM History of present illness: Mr. Redding is a 41 year old male with past medical history of hypertension and HLD. He presents to the hospital with intermittent LUQ abdominal pain and side pain with flatus and feeling like he has to have a bowel movement. He also notices a warm feeling, palpitations, and feels like he may pass out when he has this discomfort. His symptoms are triggered by eating. Reports symptoms started one year ago. At that time he was diagnosed with hypertension and placed on anti-hypertensives. He eventually quit taking due to cost. He was noted to have tachycardia on the monitor with symptoms or when he bares down. He is also being treated for hypertensive urgency. Cardiology was consulted for tachy arrythmia and concern for afib. He denies history of irregular heart rhythm. Past Med Surg Social Fam HX - Past Medical History Attestation: Yes The following information was validated with the patient. Medical history: hypertension Psychiatric history: no psych history - Social History Smoking Status: Current every day smoker Smokeless Tobacco Status: Yes Alcohol use: none Drug use: none Medications and Allergies Buprenorphine HCl [Subutex] 8 mg SL BID 06/05/17 [History] 3 Allergy/AdvReac Type Severity Reaction Status Date / Time Penicillins Allergy See Verified 06/06/17 01:43 Comments All Systems Review: The remainder of the systems were reviewed and are negative Physical Examination Vital Signs, Last 4 Hours Temp Pulse Resp BP Pulse Ox 06/08/17 11:44 97.9 F 65 18 174/106 98 06/08/17 11:16 68 General: Conversant, No Apparent Distress HEENT: Atraumatic, Normocephaly, Mucus Membranes Moist Neck: No JVD, Normal carotid pulses Cardiac: Reg Rate and Rhythm, Normal S1 and S2, No Murmur Lungs: Normal Breath Sounds, No Wheeze, Rales, Rhonchi Neuro: Alert and responsive, No focal deficits noted Abdomen: Soft, Other (Round, tender to palpation.) Skin: No rashes noted on visualized skin Musculoskeletal: No Chest Wall Tenderness Extremities: No Clubbing, No Cyanosis, No Edema, Normal Pulses Results 06/06/17 04:11 06/08/17 03:19 Lab Results 06/08/17 03:19 Sodium 136 Potassium 3.3 L Chloride 99 Carbon Dioxide 30 H BUN 16 Creatinine 0.80 Glucose 106 H Calcium 10.2 - Imaging and Cardiology Echo: report reviewed - EKG Interpretation EKG results cardiology: personally reviewed Consult Discharge Plan - Plan Referrals: Gisele Bailey DO [Resident] - 06/15/17 3:00 pm (Located in the [facility] across from the [facility]. Be sure to bring Insurance card and ID to appointment) <Jackson Bolanos - Last Filed: 06/08/17 22:31> Date of Encounter: 06/08/17 Time of Encounter: 16:00 - Attending Attestation I have personally performed a face to face evaluation on this patient. I have reviewed and agree with the care plan. History and Exam by me shows: CC: Palpitations HPI: PT reports palpitations with eating and bowel movements, feels his heart starts racing with almost any abdominal discomfort, feels dizzy and lightheaded , like he is going to pass out. Symptoms last from one to five minutes, resolve with rest, not associated with chest pain or pressure, tightness, squeezing or other pressure sensation. Pt reports was placed on metoprolol tartrate for similar complaints after evaluation with resolution of his symptoms at that time. He has self discontinued the medication four to five weeks ago. He has noted more freguent episdoes since stopping the medication, and no reoccurrence since stating it. PHM: Hyptn, near syncope, IV drug use PE; reviewed, agree with above IMP 1. Inappropreate sinus tachycardia, will obtain TSH and free T4, also a T3, continue metoprolol which is controlling symptoms 2. Hypertension: increase Lisinopril and HCTZ for better blood pressure control 3. Smoking sensation. further recs pending cardiac imaging. Assessment and Plan Discussion w patient/family: The assessment and plan as outlined above was discussed with the patient and/or family members who expressed understanding and agreement. All questions were answered. Thank you for involving us in the care of your patient. Please call with any questions. History of Present Illness History of present illness: Mr. Redding is a 41 year old male All Systems Review: The remainder of the systems were reviewed and are negative Physical Examination Vital Signs, Last 4 Hours Temp Pulse Resp BP Pulse Ox 06/08/17 19:25 98.5 F 70 21 137/115 90 Results 06/06/17 04:11 06/08/17 03:19 Lab Results 06/08/17 03:19 Sodium 136 Potassium 3.3 L Chloride 99 Carbon Dioxide 30 H BUN 16 Creatinine 0.80 Glucose 106 H Calcium 10.2
--- NOTE | 2017-06-08 17:01 | Electrocardiograph Report ---
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
--- NOTE | 2017-06-08 17:05 | Electrocardiograph Report ---
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
[2017-06-08] MEDS ORDERED: Methylnaltrexone 12 MG/0.6 ML SYRINGE SQ ONE (18:02)
[2017-06-09] MEDS: *HR* Heparin 5,000 UNIT/ML VIAL SQ SCH (05:14)
[2017-06-09] MEDS: niCARdipine 40 MG/200 ML MLS IVC SCH (05:14)
[2017-06-09 05:35] LABS: BUN/Creatinine Ratio 26 (6-26); Blood Urea Nitrogen 18 mg/dL (6-20); Calcium 9.8 mg/dL (8.6-10.3); Carbon Dioxide 26 mEq/L (23-29); Chloride 102 mEq/L (98-107); Glucose 144 mg/dL (70-105); Osmolality,Calculated 286 (280-300); Potassium 3.5 mEq/L (3.5-5.1); Sodium 136 mEq/L (136-145); eGFR For African Americans > 60 (> 60); eGFR For Non-African Americans > 60 (> 60)
[2017-06-09] MEDS: hydroCHLOROthiazide 25 MG TABLET PO SCH (08:17)
[2017-06-09] MEDS: Metoprolol XL (24 HR) Succ 50 MG TAB.ER.24H PO SCH (08:17)
[2017-06-09] MEDS: *HR* Buprenorphine HCl 8 MG TAB.SUBL SL SCH (08:17)
--- NOTE | 2017-06-09 08:52 | Discharge Summary ---
<Toribio Bajwa - Last Filed: 06/09/17 10:26> Date of Encounter: 06/09/17 Time of Encounter: 08:46 - Discharge Diagnosis (1) Abdominal pain Priority: Secondary Status: Acute Qualifiers: Abdominal location: left lower quadrant Qualified Code(s): R10.32 - Left lower quadrant pain (2) Constipation Priority: Secondary Status: Acute Qualifiers: Constipation type: drug induced constipation Qualified Code(s): K59.03 - Drug induced constipation (3) Dizziness Priority: Secondary Status: Resolved (4) Hypertensive emergency Priority: Primary Status: Acute (5) Hypokalemia Priority: Secondary Status: Acute (6) DVT prophylaxis Priority: Secondary Status: Acute (7) Obesity (BMI 30-39.9) Priority: Secondary Status: Acute (8) Tobacco abuse Priority: Secondary Status: Acute (9) Opioid abuse Priority: Secondary Status: Acute (10) Tachycardia Priority: Secondary Status: Resolved (11) Uninsured Priority: Secondary Status: Acute Hospital course: Mr. Redding is a 41 year old male w/ pmh of opioid abuse, and HTN. Patient has been on buprenorphine for 3 years, and a few months back decided to only take his buprenorphine instead of his HTN medications due to cost, and inability to have medications refills due to not having insurance. Patient presented to [facility] with multiple day constipation, abdominal pain, and BP of 230/110. Patient was initially started on nicardipine drip to control BP. He was appropriately dropped within the first 24 hours with a goal of 160/110. He was titrated over to his oral BP medications during his hospitalization. Constipation resolved after receiving milk of Mg, and enema. Educated patient on constipation being the side effect of longer term opioid usage. Patient is discharged with metoprolol XL and Lisinopril/HCTZ 20/12.5, colace, biscacodyl, and milk of Mg. Patient is setup with Dr. Cantrell for outpatient PCP. Patient had episodes of palpitations during hospitalization, and would become tachy after straining for bowel movement. As well, previous Rx of Metoprolol XL was suspicious of previous afib or other tachy arrhythmias. Patient was seen by cardiology and recommend outpatient stress test. Discharge discussed with: patient Time spent discussing smoking cessation with patient: more than 10 minutes - Time Spent with Patient Total time spent providing and/or coordinating discharge services: - Discharge Medications Prescriptions: Bisacodyl [Dulcolax] 5 mg PO DAILY #30 tablet Docusate Sodium [Colace] 100 mg PO DAILY 30 Days #30 capsule Lisinopril-HCTZ 20-12.5 [Prinzide 20-12.5] 1 each PO DAILY 30 Days #30 tablet Magnesium Hydroxide [Milk of Magnesia] 400 mg PO DAILY #30 oral.susp Metoprolol XL (24 HR) Succ [Toprol Xl] 50 mg PO DAILY 30 Days #30 tab.er.24h Home Medications: Buprenorphine HCl [Subutex] 8 mg SL BID 06/05/17 [History] Bisacodyl [Dulcolax] 5 mg PO DAILY #30 tablet 06/09/17 [Rx] Docusate Sodium [Colace] 100 mg PO DAILY 30 Days #30 capsule 06/09/17 [Rx] Lisinopril-HCTZ 20-12.5 [Prinzide 20-12.5] 1 each PO DAILY 30 Days #30 tablet [Rx] Magnesium Hydroxide [Milk of Magnesia] 400 mg PO DAILY #30 oral.susp 06/09/17 [ Rx] Metoprolol XL (24 HR) Succ [Toprol Xl] 50 mg PO DAILY 30 Days #30 tab.er.24h [Rx] Allergies/Adverse Reactions: 3 Allergy/AdvReac Type Severity Reaction Status Date / Time Penicillins Allergy See Verified 06/06/17 01:43 Comments Date of admission: 06/05/17 21:06 Primary care physician: PCP NONE Consults: 06/08/17 08:19 Consult to Cardiology [CONS] Routine Comment: Consulting Provider: Cardiology Radha Reason for Consult: tachy arrhythmia Call Completed: Yes 06/08/17 14:18 Consult to Radiator Fitter [CONS] Routine Reason for SW Consult: assistance with insurance Discharging clinician: Toribio Bajwa Anticipated date of discharge: 06/09/17 - Constitutional Vitals: Temp Pulse Resp BP Pulse Ox 98.3 F 61 18 149/104 97 06/09/17 07:04 06/09/17 07:04 06/09/17 07:04 06/09/17 07:04 06/09/17 07:04 General appearance: Present: cooperative, mild distress, A&O X 3, morbidly obese , answers questions appropriately - Head Head exam: Present: atraumatic, normocephalic - Respiratory Respiratory exam: Present: CTAB. Absent: accessory muscle use, rales, rhonchi, wheezes - Cardiovascular Cardiovascular exam: Present: RRR - GI/Abdominal GI/Abdominal exam: Present: hypoactive bowel sounds - Neurological Exam Neurological exam: Present: CN II-XII intact, oriented X3, no focal deficits. Absent: pronater drift, facial droop, speech deficit - Patient Status Disposition: Home, Self-Care Condition: Fair Functional capacity at discharge: independent ambulation Overall status at discharge: patient is progressing back to baseline - Discharge Instructions Instructions: Chronic Hypertension (DC) Follow Up With: Elio Cantrell DO [Resident] - - Diet and Activity Activity: increase activity as tolerated Diet: regular diet <Wilber Hansen - Last Filed: 06/09/17 18:44> Date of Encounter: 06/09/17 - Discharge Diagnosis (1) Hypertensive emergency Status: Acute (2) Constipation Status: Chronic Qualifiers: Constipation type: drug induced constipation Qualified Code(s): K59.03 - Drug induced constipation (3) Hypokalemia Status: Resolved (4) Abdominal pain Status: Resolved Qualifiers: Abdominal location: left lower quadrant Qualified Code(s): R10.32 - Left lower quadrant pain (5) Dizziness Status: Resolved (6) Obesity (BMI 30-39.9) Status: Chronic (7) Tobacco abuse Status: Chronic (8) Opioid abuse Status: Chronic (9) Tachycardia Status: Resolved (10) Uninsured Status: Chronic Hospital course: Mr. Redding is a 41 year old male - Time Spent with Patient Total time spent providing and/or coordinating discharge services: 38min Date of admission: 06/05/17 21:06 Primary care physician: PCP NONE Consults: 06/08/17 08:19 Consult to Cardiology [CONS] Routine Comment: Consulting Provider: Cardiology Radha Reason for Consult: tachy arrhythmia Call Completed: Yes 06/08/17 14:18 Consult to Radiator Fitter [CONS] Routine Reason for SW Consult: assistance with insurance - Constitutional Vitals: Temp Pulse Resp BP Pulse Ox 98.4 F 66 18 153/97 94 06/09/17 10:52 06/09/17 10:52 06/09/17 10:52 06/09/17 10:52 06/09/17 10:52 - Attending Attestation I examined this patient and my medical decision-making was reviewed with the Resident Physician on 06/09/17. I agree with the documented findings, disposition and treatment plan as described except to the extent set forth below. Mr Redding has been admitted for hypertensive emergency and constipation. He has had improvement in his symptoms and BP. He was seen by cardiology due to tachycardia events. To follow up for possible outpatient stress test. He feels well today and ready to go home. Exam alert Comfortable Mucus membranes dry Heart reg No wheeze abd soft Plan D/C home today with outpatient follow up.
[2017-06-09 10:54] VITALS: BP 153/97
== END 2017-06-09 12:05 | disposition home or self-care (01) | DRG 305 ==
LOC: EMEROO 18:21 → ICNU 18:21 → SUATTDRO 21:06 → ICNU 21:20 → 2NNU 06-07 19:39
PROVIDERS: ADMIT Family Medicine; ATTEND Internal Medicine